=== PATIENT | female | born 1980 | race Caucasian/White ===

== ENCOUNTER 2021-10-27 06:26 | Observation (INO) | payer OTHER, SELFPAY ==
--- NOTE | ~2021-10-27 | XR_ITS ---
EXAMINATION: XR abdomen/kub 1V EXAM DATE: 10/27/2021 13:36 INDICATION: Possible distal colon obstruction TECHNIQUE: Frontal projection(s) of the abdomen for interpretation. Correlation is made to CT abdome n pelvis from earlier same date. FINDINGS: This image was obtained as a discount clerk for requested water-soluble enema examination. Patient was apprehensive about doing this procedure at this time, which does require a rectal tube and inflat ing a balloon to hold its position. There is some contrast in the rectum and renal calyces. Large amount of colonic stool, constipation. No transition point suspected on the CT scan obtained earlier same date. IMPRESSION: Severe constipation. Reviewed, dictated and finalized at location A. IMPRESSION: Severe constipation.
--- NOTE | ~2021-10-27 | CT_ITS ---
EXAMINATION: CT abdomen pelvis w con DATE: 10/27/2021 07:50 INDICATION: Constipation. Nausea. Generalized abdominal pain. TECHNIQUE: Computed tomography (CT) of the abdomen and pelvis was performed with 100 mL Omnipaque 350 intravenous contrast. Automated exposure control and iterative reconstruction technique were employe d. The dose-length product was 511.10 mGy-cm. COMPARISON: None. FINDINGS: The visualized portions of the lung bases demonstrate mild atelectasis on the left. No pleu ral effusion. The heart size is normal. No pericardial effusion. There is a small sliding hiatal johanne ia. There are cysts in the liver measuring up to 10 mm. The gallbladder, spleen, pancreas, and adrena l glands are normal. There are cysts in the kidneys measuring up to 8 mm on the right. There is a lar ge volume of stool in the colon with distention of the rectum. There is fat stranding around the rect um, consistent with inflammation. The appendix is not visualized. There are no pathologically enlarge d lymph nodes. There is no free intraperitoneal fluid. There is mild lumbar spondylosis. IMPRESSION: 1. Large volume of stool in the colon with distention of the rectum and fat stranding around the rect um, consistent with inflammation. Reviewed, dictated and finalized at location A. IMPRESSION: 1. Large volume of stool in the colon with distention of the rectum and fat str anding around the rectum, consistent with inflammation.
[2021-10-27 06:32] VITALS: BP 137/69; PULSE 97; RESP 16; TEMP 36.1; O2SAT 99
[2021-10-27 07:09] LABS: Basophils Percent Auto 0.4 % (0.2-1.2); Eosinophils Absolute Auto 0.3 K/mm3 (0-0.3); Eosinophils Percent Auto 4.5 % (0-4.4); Hematocrit 30.3 % (37.0-47.0); Hemoglobin 8.9 g/dL (12.0-15.0); Immature Granulocyte Absolute 0.03 K/mm3 (0.00-0.031); Immature Granulocyte Percent A 0.4 % (0-0.5); Lymphocytes Absolute Auto 1.81 K/mm3 (0.9-3.2); Lymphocytes Percent Auto 27.1 % (18.3-44.2); Mean Corpuscular HGB Conc 29.4 g/dl (32-36); Mean Corpuscular Hemoglobin 23.3 pg (26-34); Mean Corpuscular Volume 79.3 fl (80-100); Mean Platelet Volume 9.3 fl (7.4-10.4); Monocytes Absolute Auto 0.5 K/mm3 (0.1-0.6); Monocytes Percent Auto 6.9 % (2.6-8.5); Neutrophils Absolute Auto 4.1 K/mm3 (1.3-6.7); Neutrophils Percent Auto 60.7 % (45.5-73.1); Platelet Count Result 331 k/mm3 (150-375); Red Blood Count 3.82 M/mm3 (4.2-5.4); Red Cell Distribution Width 16.8 % (11.5-14.5); White Blood Count 6.7 K/mm3 (4.5-10.0)
--- NOTE | 2021-10-27 07:15 | ED.ABDPAIN ---
HPI - Abdominal Pain General Chief Complaint: Abdominal Pain Stated Complaint: CONSTIPATION Time Seen by Provider: 10/27/21 06:48 Source: patient History of Present Illness HPI narrative: Patient presents with concern for constipation. Patient reports she normally only has a bowel movement once a week however last bowel movement was approximately 3 weeks ago. She attempted stool softeners and enemas without relief of her symptoms. She describes a pressure sensation around her rectum. She was not sure what to do so she came to the ER for evaluation. She does report intermittent nausea denies any vomiting. Related Data Allergies Allergy/AdvReac Type Severity Reaction Status Date / Time No Known Allergies Allergy Verified 10/27/21 07:26 Review of Systems Review of Systems: CONSTITUTIONAL: Denies fever, chills, or sweats. EYES: Denies visual changes, redness, or discharge. ENT: Denies rhinorrhea, congestion, sore throat, or otalgia. CARDIOVASCULAR: Denies chest pain, palpitations, or edema. RESPIRATORY: Denies cough or dyspnea. GASTROINTESTINAL: Denies vomiting, or diarrhea. GENITOURINARY: Denies dysuria or hematuria. SKIN: Denies rash or itching. MUSCULOSKELETAL: Denies back pain, joint pain, or myalgia. NEUROLOGIC: Denies headache, numbness, dizziness, or weakness. PSYCHIATRIC: Denies anxiety or depression. All systems reviewed & are unremarkable except as noted in HPI and below PMFSH Past Medical History Medical History (Updated 10/27/21 @ 09:36 by Nikolai Rosales MD) Patient denies medical problems Social History Social History (Updated 10/27/21 @ 07:17 by Nikolai Rosales MD) Smoking packs per day: 1 Smoking cigarettes per day: 20.0 Smoking status: Current every day smoker Alcohol intake: never Substance use: former Other substance usage details: gummy thc Spiritual care concerns: No Exam Narrative: GENERAL: Well-appearing, well-nourished, and in no acute distress. HEAD: Normocephalic, atraumatic. EYES: PERRLA and EOMI. ENT: Nares clear, no rhinorrhea or epistaxis. Mucous membranes moist. NECK: Supple. No masses. No JVD ABDOMEN: Soft, nontender, nondistended EXTREMITIES: Normal range of motion. No edema. SKIN: Warm, dry, no rash. NEURO: No focal deficits. Alert and oriented x3. PSYCH: Normal mood and affect. Procedures Rectal Disimpaction Rectal Disimpaction #1: Rectal Disimpaction Date: 10/27/21 Rectal Disimpaction Time: 09:15 Time out performed rectal disimpaction: No Indication: fecal impaction Procedural Sedation: No Sedation/Analgesia: none Technique: manual disimpaction with gloved finger Result: unable to disimpact Patient Tolerated Procedure: other (2 attempts made aptient was unable to tolerate additional attempts) Complications: pain Course Reevaluation(s) Reevaluation #1: Patient continues to have constipation. Attempted glycerol suppository in rectal disimpaction which was unsuccessful. Patient was not tolerating the procedure after multiple times. Case discussed with GI and based on the CT scan there may be distal obstruction given the inflammation GI rectum admission for aggressive bowel regiment. Case cussed with hospitalist team who further management Date: 10/27/21 Time: 09:33 Vital Signs Vital signs: Vital Signs Temperature 36.1 C L 10/27/21 06:32 Pulse Rate 97 10/27/21 06:32 Respiratory Rate 16 10/27/21 06:32 Blood Pressure 137/69 10/27/21 06:32 Pulse Oximetry 99 10/27/21 06:32 Temperature 36.1 C L 10/27/21 06:32 Pulse Rate 92 10/27/21 09:28 Respiratory Rate 16 10/27/21 09:28 Blood Pressure 136/84 10/27/21 09:28 Pulse Oximetry 99 10/27/21 09:28 MDM - Abdominal Pain MDM Narrative Medical decision making narrative: Patient presented with rectal pressure no bowel movement in 3 weeks. She attempted stool softeners at home enemas at home. Attempted suppositori
[2021-10-27 07:18] LABS: Add Urine Microscopic? YES; Appearance Urine Cloudy (Clear); Bilirubin Urine Negative (Negative); Blood Urine Negative (Negative); Color Urine Yellow (Yellow); Glucose Urine UA Negative (Negative); Ketones Urine Negative (Negative); Leukocyte Esterase Ur 3+ LEU/UL (Negative); Mucus Urine Heavy /lpf; Nitrate Urine Negative (Negative); Protein Urine Negative (Negative); Specific Grav Ur 1.019 (1.001-1.035); Squamous Epithelial Cell Urine Many /hpf (Few); Urobilinogen Urine Negative mg/dL (<2.0); WBC Urine 31-50 /hpf
[2021-10-27 07:19] LABS: Alanine Aminotransferase 10 U/L (4-35); Albumin Level 4.2 g/dL (3.5-5.1); Alkaline Phosphatase 56 U/L (38-126); Anion Gap 4 mmol/L (8-16); Aspartate Amino Transferase 26 U/L (14-36); Bilirubin,Total 0.2 mg/dL (0.2-1.3); Blood Urea Nitrogen 13 mg/dL (7-17); Calcium 8.4 mg/dL (8.4-10.2); Carbon Dioxide 31 mmol/L (22-30); Chloride 103 mmol/L (98-107); Estimated CRCL calculation 103 ml/min; Estimated Glomerular Filt Rate > 60; Glucose 103 mg/dL (65-110); Lipase 27 U/L (23-300); Potassium 3.4 mmol/L (3.4-5.0); Sodium 138 mmol/L (137-145)
[2021-10-27 07:22] LABS: Hypochromasia 1+ (NORMAL); Platelet Estimate Adequate (Adequate)
[2021-10-27] MEDS: GLYCERIN ADULT 1 SUPP.RECT RECTAL (07:27)
[2021-10-27 09:28] VITALS: BP 136/84; PULSE 92; RESP 16; O2SAT 99
[2021-10-27] MEDS: PHENYLEPH/MINERAL OIL/PETROLAT OINTMENT 57 GM 1 APPLIC RECTAL (09:58)
[2021-10-27] MEDS: PEG (High)/E-LYTE SOLN 4,000 ML BTL 4000 ML PO (09:59)
[2021-10-27] MEDS: SODIUM CHLORIDE 0.9% IV 1,000 ML 125 ML IV CONT (11:23)
--- NOTE | 2021-10-27 11:27 | ADMGEN ---
This patient, Tyler Zavala, was admitted to [facility] Surg Room 310-01. Patient/family oriented to hospital policies and general routines including ID bracelet, bed and alarms, visiting hours, pain management, procedures, bathroom and other care routines, personal items, smoking policy, room service/diet, and visiting hours. Information on how to activate the Rapid Response Team has been discussed. Patient/Family are encouraged to report perceived risks to care and to ask questions if they do not understand what they are told or what they should do.
[2021-10-27 11:34] VITALS: BMI 29.0
[2021-10-27 11:52] VITALS: BP 117/72; PULSE 75; RESP 18; TEMP 37.3; O2SAT 100
--- NOTE | 2021-10-27 13:39 | PM.IMHP ---
H&P: HPI History of Present Illness Date/Time: Patient was placed observation status for expected length of stay less than 23 hours for management, will plan to re-evaluate tomorrow for improvement. 10/27/21 13:39 Chief Complaint: Constipation Narrative: Ms. Zavala is a 41-year-old female who presented emergency room with complaints of constipation. Patient states she typically has bowel movements weekly, but she has not had a bowel movement in 3 weeks. Patient states that she is not having abdominal pain, but she is having a large amount of abdominal pressure. Patient states this has been a chronic issue for her for years. Patient denies any nausea, vomiting, diarrhea, fever, or chills. Patient denies any dysuria, hematuria, frequency, or urgency, but states that she has felt like she may have a urinary tract infection recently. Patient states that every time she does try to have a bowel movement weekly she does have a large amount of pain in the rectal area. Patient states she at times does have quite a bit of cramping also when having a bowel movement. Patient denies any lightheadedness, dizziness, syncopal, or near syncopal episodes. Patient denies any chest pain, shortness breath, orthopnea, or PND. Patient states she has been told she is anemic in the past. Patient states that she has very heavy periods. Patient states that she menstruates monthly and her periods to be last 48 days. Patient states that she goes to multiple tampons and pads in a day. Review of Systems Review of Systems: A 12 point review of systems was completed patient all pertinent positive and negative per HPI the remainder are unremarkable. [facility] Past Medical History Medical History (Updated 10/27/21 @ 13:44 by Gladys Layton APRN) Anemia Surgical History Surgical History (Updated 10/27/21 @ 13:44 by Gladys Layton APRN) History of tubal ligation Previous section Social History Social History (Updated 10/27/21 @ 07:17 by Nikolai Rosales MD) Smoking packs per day: 1 Smoking cigarettes per day: 20.0 Smoking status: Current every day smoker Alcohol intake: never Substance use: former Other substance usage details: gummy thc Spiritual care concerns: No Meds Home Medications and Allergies Home Medications Medication Instructions Recorded Confirmed Type No Home Medications 10/27/21 10/27/21 History Allergies Allergy/AdvReac Type Severity Reaction Status Date / Time No Known Allergies Allergy Verified 10/27/21 07:26 Vital Signs Vital Signs - 24 hr 10/27/21 06:32 10/27/21 09:28 10/27/21 11:52 Temperature 36.1 C L 37.3 C Pulse Rate 97 92 75 Respiratory Rate 16 16 18 Blood Pressure 137/69 136/84 117/72 Pulse Oximetry 99 99 100 Exam Narrative: Constitutional: Patient is well-nourished in no acute distress. Patient is alert and oriented x3 HEENT: Moist mucous membranes. No scleral icterus. No lymphadenopathy. Neck: No carotid bruits noted no JVD noted Lungs: Lung sounds are clear to auscultation bilaterally. No accessory muscle use. No rhonchi, rales, or wheezes noted. Cardiovascular: Apical pulse is regular rate and rhythm. S1-S2 noted, no S3 or S4 noted. No gallops, murmurs, or rubs noted. Abdomen: Soft, round, and nontender, patient states she does feel pressure with palpation but no pain.. No palpable masses. Extremities: No edema. Nontender. Skin: No rashes or lesions. Warm and dry. Skin is intact. Neurological: No focal neurological deficits. Cranial nerves II-XII grossly intact. Psychiatric: Cooperative, appropriate mood, and affect H&P: Results Labs Labs: Short CBC 10/27/21 Range/Units 06:59 WBC 6.7 (4.5-10.0) K/mm3 Hgb 8.9 L (12.0-15.0) g/dL Hct 30.3 L (37.0-47.0) % Plt Count 331 (150-375) k/mm3 [facility] 10/27/21 06:59 Sodium 138 Potassium 3.4 Chloride 103 Carbon Dioxide 31 H BUN 13 Creatinine 0.60 L Glucose 103
[2021-10-27 14:00] VITALS: BP 108/71; PULSE 75; RESP 18; TEMP 37.3; O2SAT 98
[2021-10-27 15:08] LABS: Iron 39 ug/dL (37-170)
[2021-10-27 15:18] LABS: Percent Iron Saturation 8 % (20-50)
--- NOTE | 2021-10-27 15:22 | WPDGICN ---
Assessment and Plan Assessment and plan (1) Constipation: Code(s): K59.00 - Constipation, unspecified Status: Acute Assessment and Plan: as noted above, this is a chronic problem for her. I will order citrated magnesium now to try to soften her stool and facilitate a bowel movement. I had explained to her that a water-soluble enema would help not only see her anatomy but also we have cathartic effects. She would rather not have that at this time. depending on whether not she has results from the magnesium citrate that I have ordered we might try to prep her for colonoscopy. She states that she might reconsider the high peak enema in the morning (2) Fecal impaction: Code(s): K56.41 - Fecal impaction Status: Acute Assessment and Plan: Stool could not be felt by the emergency room physician except on the tip of his finger, therefore this appears to be a high fecal impaction. By her description this happens frequently. She states that time she will manipulate herself, putting her fingers in her vagina, to help with stool pass (3) Anemia: Code(s): D64.9 - Anemia, unspecified Status: Acute Assessment and Plan: as far she knows this is a new problem. She denies seeing blood in her stools GI Consult Note Consult date/time: 10/27/21 15:22 HPI: Tyler Zavala is a 41 year old female with severer constipation. Patient reports she normally only has a bowel movement once a week however last bowel movement was approximately 3 weeks ago. She attempted stool softeners and enemas without relief of her symptoms. She describes a pressure sensation around her rectum. She was not sure what to do so she came to the ER for evaluation. She does report intermittent nausea denies any vomiting. she states that the last few days she has had a great pressure and she tried to pass some stool. It seemed to come down to the anus but would not pass. In the emergency room a physician performed a rectal examination and did not feel rectal impaction but could feel just barely the tip of some stool. I have been consulted in ordered a high peak enema but the patient the is refusing at this time. She states that she is concerned about the balloon being inflated in her rectum and more stuff being shot up into her colon. She states that she has had problems with her bowels all of her life. When she was younger she would use stool softeners. More recently she might go a week between bowel movements but does not get much of an urge. States that she eats a fair bit of fiber. She will have oatmeal for breakfast and eats a lot of fruit. I did Personally review her CT scan. That showed large amount of stool in the distended colon also the rectum appears to be distended and there is stranding around the rectum implying inflammation.. Review of Systems Review of Systems: All systems reviewed & are unremarkable except as noted in HPI and below PMFSH Past Medical History Medical History Anemia Surgical History Surgical History History of tubal ligation Previous section Social History Social History Smoking packs per day: 1 Smoking cigarettes per day: 20.0 Smoking status: Current every day smoker Alcohol intake: never Substance use: former Other substance usage details: gummy thc Spiritual care concerns: No Meds Home Medications and Allergies Home Medications Medication Instructions Recorded Confirmed Type No Home Medications 10/27/21 10/27/21 History Allergies Allergy/AdvReac Type Severity Reaction Status Date / Time No Known Allergies Allergy Verified 10/27/21 07:26 Vital Signs Vital Signs - 24 hr 10/27/21 06:32 10/27/21 09:28 10/27/21 11:52 Temperature 36.1 C L 37.3 C Pulse Rate 97
[2021-10-27] MEDS: MAGNESIUM CITRATE 300 ML BTL PO (15:57)
[2021-10-27] MEDS: DOCUSATE SODIUM 100 MG CAPSULE PO (20:20)
[2021-10-27 21:07] VITALS: BP 99/63; PULSE 73; RESP 16; TEMP 37.4; O2SAT 97
[2021-10-28] MEDS: SODIUM CHLORIDE 0.9% IV 1,000 ML 125 ML IV CONT ×2 (01:02→09:05)
[2021-10-28 05:52] LABS: Basophils Percent Auto 0.4 % (0.2-1.2); Eosinophils Absolute Auto 0.4 K/mm3 (0-0.3); Eosinophils Percent Auto 8.5 % (0-4.4); Hematocrit 27.4 % (37.0-47.0); Hemoglobin 8.2 g/dL (12.0-15.0); Immature Granulocyte Absolute 0.01 K/mm3 (0.00-0.031); Immature Granulocyte Percent A 0.2 % (0-0.5); Lymphocytes Absolute Auto 2.27 K/mm3 (0.9-3.2); Mean Corpuscular HGB Conc 29.9 g/dl (32-36); Mean Corpuscular Hemoglobin 23.2 pg (26-34); Mean Corpuscular Volume 77.4 fl (80-100); Mean Platelet Volume 9.1 fl (7.4-10.4); Monocytes Absolute Auto 0.3 K/mm3 (0.1-0.6); Neutrophils Absolute Auto 1.8 K/mm3 (1.3-6.7); Neutrophils Percent Auto 37.9 % (45.5-73.1); Platelet Count Result 302 k/mm3 (150-375); Red Blood Count 3.54 M/mm3 (4.2-5.4); Red Cell Distribution Width 16.9 % (11.5-14.5); White Blood Count 4.8 K/mm3 (4.5-10.0)
[2021-10-28 06:05] LABS: Alanine Aminotransferase 9 U/L (4-35); Albumin Level 3.8 g/dL (3.5-5.1); Alkaline Phosphatase 54 U/L (38-126); Anion Gap 4 mmol/L (8-16); Aspartate Amino Transferase 23 U/L (14-36); Bilirubin,Total 0.2 mg/dL (0.2-1.3); Blood Urea Nitrogen 9 mg/dL (7-17); Calcium 8.1 mg/dL (8.4-10.2); Carbon Dioxide 29 mmol/L (22-30); Chloride 106 mmol/L (98-107); Estimated CRCL calculation 121 ml/min; Estimated Glomerular Filt Rate > 60; Glucose 90 mg/dL (65-110); Potassium 3.9 mmol/L (3.4-5.0); Sodium 139 mmol/L (137-145)
[2021-10-28 06:43] VITALS: BP 99/62; PULSE 72; RESP 16; TEMP 37.2; O2SAT 98
--- NOTE | 2021-10-28 06:53 | WPDGIPROGNO ---
Progress Note: A&P Assessment and Plan (1) Constipation: Code(s): K59.00 - Constipation, unspecified Status: Acute Assessment and Plan: as noted above, this is a chronic problem for her. I will order citrated magnesium now to try to soften her stool and facilitate a bowel movement. I had explained to her that a water-soluble enema would help not only see her anatomy but also we have cathartic effects. She would rather not have that at this time. depending on whether not she has results from the magnesium citrate that I have ordered we might try to prep her for colonoscopy. She states that she might reconsider the high peak enema in the morning 10/28 she did have a good bowel movement after taking the laxative, beginning with the large codi-colored ball of stool. She feels comfortable today and feels like going home. I would recommend she take a product like Linzess to stay regular and her prevent constipation and fecal impaction. (2) Fecal impaction: Code(s): K56.41 - Fecal impaction Status: Acute Assessment and Plan: Stool could not be felt by the emergency room physician except on the tip of his finger, therefore this appears to be a high fecal impaction. By her description this happens frequently. She states that time she will manipulate herself, putting her fingers in her vagina, to help with stool pass (3) Anemia: Code(s): D64.9 - Anemia, unspecified Status: Acute Assessment and Plan: as far she knows this is a new problem. She denies seeing blood in her stools 10/28 I discussed her anemia with her. I told her that we of course RO is concerned about possible colorectal malignancy or other gastrointestinal pathology when 1 has significant anemia. She states that she has heavy periods and has been anemic for a long time. I think that she would benefit from iron supplementation. I also told her that she should have a colonoscopy in the near future. She states that she is going to be seeing her primary care physician in [place] next week. Subjective Date/time seen: 10/28/21 06:53 10/27 Patient reports she normally only has a bowel movement once a week however last bowel movement was approximately 3 weeks ago. She attempted stool softeners and enemas without relief of her symptoms. She describes a pressure sensation around her rectum. She was not sure what to do so she came to the ER for evaluation. She does report intermittent nausea denies any vomiting. she states that the last few days she has had a great pressure and she tried to pass some stool. It seemed to come down to the anus but would not pass. In the emergency room a physician performed a rectal examination and did not feel rectal impaction but could feel just barely the tip of some stool. I have been consulted and ordered a water-soluble enema enema but the patient is refusing at this time. She states that she is concerned about the balloon being inflated in her rectum and more stuff being shot up into her colon. She states that she has had problems with her bowels all of her life. When she was younger she would use stool softeners. More recently she might go a week between bowel movements but does not get much of an urge. States that she eats a fair bit of fiber. She will have oatmeal for breakfast and eats a lot of fruit. I did Personally review her CT scan. That showed large amount of stool in the distended colon also the rectum appears to be distended and there is stranding around the rectum implying inflammation.. 10/28 She states that she had a great bowel movement after taking a citrated magnesia Review of Systems Review of Systems: All systems reviewed & are unremarkable except as noted in HPI and below Exam Const: General: alert Orientation/consciousness: patient oriented x3 Resp: Auscultation: clear to auscultation bilaterally Cardio: Rhythm: regular rhythm GI: Inspection: normal to
[2021-10-28 09:05] VITALS: O2SAT 98
[2021-10-28] MEDS: polyethylene glycoL 3350 17 GM POWD.PACK PO (09:05)
[2021-10-28] MEDS: DOCUSATE SODIUM 100 MG CAPSULE PO (09:05)
[2021-10-28 09:29] LABS: Ferritin 4.97 ng/mL (6.24-137)
[2021-10-28 10:03] LABS: Folic Acid 13.6 ng/mL (2.76->20)
--- NOTE | 2021-10-28 10:15 | PM.DS ---
DS: Admitting Diagnosis Discharge Date 10/28/21 1015 Admitting Diagnosis Constipation with impaction DS: Discharge Diagnosis Discharge Diagnosis (1) Fecal impaction: Code(s): K56.41 - Fecal impaction Status: Acute Assessment and Plan: Gastroenterology has been consulted and due appreciating further recommendations. Patient's bowel issues appear to be chronic in nature. GoLYTELY has been ordered by Gastroenterology. (2) Anemia: Code(s): D64.9 - Anemia, unspecified Status: Acute Assessment and Plan: Patient states she does have heavy periods monthly. Patient's MCV is mildly low. Will have iron levels checked. 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 DS: Summary Hospital Course Hospital Course: patient is a 41-year-old female with a past medical history of anemia and tubal ligation who presented to the ED with complaints of constipation. patient stated that she normally has a bowel movement weekly however she has not had 1 in 3 weeks. she was having extreme abdominal pain and pressure. CT of the abdomen showed constipation large amounts of stool with fat stranding around the rectum and swelling. x-ray of the abdomen showed constipation as well. Patient was prescribed some Mag citrate and GI got involved and patient was able to have a few good bowel movements and feels a lot better to today. Patient has been able to eat and hold down food. She denies any chest pain, shortness of breath, nausea, vomiting, diarrhea, constipation, weakness, fatigue, fevers, sweats, chills. I did speak with the patient about her iron deficiency and explained her that she will need to start iron supplements however she will need to also need to take Colace with that. Or will cause her to be severely constipated again. Status at Discharge Functional status at discharge: independent ambulation Overall status at discharge: patient is progressing back to baseline Time Spent with Patient Time attestation: Total time spent providing and/or coordinating discharge services: 48 minutes Time spent: Greater than 30 minutes Specific discharge activities: Diagnostic testing, chart review, developing a treatment plan, education, care coordination documentation, physical exam, result review Exam Const: General: cooperative, healthy appearing, no acute distress, well developed, alert and awake Nutritional Appearance: well nourished Orientation/consciousness: patient oriented x3 Limitations: no limitations HENMT: Head: normal to inspection Ears: hearing grossly normal bilaterally General nose exam: Normal external nose present Mouth: Yes Normal oral and palatal mucosa present, Yes lip normal and Yes tongue normal Teeth and gingiva: abnormal tooth and associated gingiva and poor dentition Eyes: General: appearance normal, both eyes and all related structures Neck: Neck: normal visual inspection, full ROM, trachea midline and supple Chest: Chest palpation & inspection: normal inspection of the chest Resp: Effort & Inspection: normal respiratory effort and able to speak in complete sentences Auscultation: clear to auscultation bilaterally Cardio: Jugular venous distension: no JVD Rate: regular rate Rhythm: regular rhythm Heart sounds: S1 normal heart sound present and S2 normal heart sound present Peripheral pulses: Peripheral pulses 2+ throughout GI: Inspection: normal to inspection GI Palp: Yes Soft to palpation and No Tenderness to palpation present (GI) Auscultation: normal bowel sounds Skin: General skin exam: normal color and no rashes or lesions noted Lesions: no lesions Rashes: no rashes Trauma: no lacerations or abrasions Wounds: no wounds Hair: normal Nails: normal Neuro: General: patient oriented x3, moves all extremities and Normal light touch and pain sensation Speech: normal speech Gait exam (Neuro): Normal gait present Extrem: General: normal to inspection Right upp
== END 2021-10-28 12:55 | disposition home or self-care (01) ==
LOC: ANHED 09:36 → ANH3MEDSUR 15:18
PROVIDERS: Nurse Practitioner Adult Health; Admitting Provider Internal Medicine; Emergency Provider Emergency Medicine; PCP Internal Medicine; Visit Provider Nurse Practitioner
DX: K56.41 Fecal impaction (principal); D64.9 Anemia, unspecified; R10.9 Unspecified abdominal pain; F17.210 Nicotine dependence, cigarettes, uncomplicated; F12.90 Cannabis use, unspecified, uncomplicated
CPT/HCPCS: 36415; 74018; 74177; 80053; 81001; 81025; 82607; 82728; 82746; 83540; 83550; 83690; 85025; 87086; 87088; 96361; 96365; 96374; 99285; A9270; G0378; G0379; J0696; J7030; Q9967

== ENCOUNTER 2023-11-12 17:51 | Emergency (ER) | payer OTHER, SELFPAY | END 2023-11-12 18:00 | disposition left against medical advice (07) | DX: Z53.21 Procedure and treatment not carried out due to patient leaving prior to being seen by health care provider (principal) | CPT/HCPCS: 99199 ==

== ENCOUNTER 2024-05-14 00:09 | Emergency (ER) | payer OTHER, SELFPAY ==
[2024-05-14] VITALS (13 sets, daily range): BP systolic 80–100; BP diastolic 52–68; PULSE 76–111; RESP 12–18; TEMP 36.9–37.6; O2SAT 93–98
--- NOTE | ~2024-05-14 | XR_ITS ---
EXAMINATION: XR chest 1V portable DATE: 05/14/2024 00:42 INDICATION: Epigastric abdominal pain. TECHNIQUE: A single frontal view of the chest was obtained. COMPARISON: CT abdomen and pelvis 10/27/2021 FINDINGS: There is no pneumonia, pleural effusion, or pneumothorax. The heart size is normal. IMPRESSION: 1. No acute cardiopulmonary disease. Reviewed, dictated and finalized at location A.
--- NOTE | 2024-05-14 00:10 | ECG_ITS ---
Test Date: 2024-05-14 00:22:35 Measurements Intervals [place] Rate: 107 P: 15 MN: 172 QRS: 24 QRSD: 87 T: 20 QT: 307 QTc: 410 Interpretive Statements SINUS TACHYCARDIA OTHERWISE NORMAL ECG No previous ECG available for comparison Electronically Signed On 05-14-2024 10:20:59 CDT by Kingsley Yan M.D.
[2024-05-14 00:35] LABS: Basophils Percent Auto 0.2 % (0.2-1.2); Eosinophils Percent Auto 0.1 % (0-4.4); Hematocrit 25.7 % (37.0-47.0); Hemoglobin 7.6 g/dL (12.0-15.0); Immature Granulocyte Absolute 0.06 K/mm3 (0.00-0.031); Immature Granulocyte Percent A 0.5 % (0-0.5); Lymphocytes Absolute Auto 0.44 K/mm3 (0.9-3.2); Mean Corpuscular HGB Conc 29.6 g/dl (32-36); Mean Corpuscular Hemoglobin 22.3 pg (26-34); Mean Corpuscular Volume 75.4 fl (80-100); Mean Platelet Volume 9.2 fl (7.4-10.4); Monocytes Absolute Auto 0.6 K/mm3 (0.1-0.6); Monocytes Percent Auto 5.2 % (2.6-8.5); Platelet Count Result 257 k/mm3 (150-375); Red Blood Count 3.41 M/mm3 (4.2-5.4); Red Cell Distribution Width 16.8 % (11.5-14.5); White Blood Count 11.1 K/mm3 (4.5-10.0)
[2024-05-14] MEDS: ASPIRIN 81 MG CHEWABLE TABLET 324 MG PO (00:42)
[2024-05-14] MEDS: SODIUM CHLORIDE 0.9% IV 1,000 ML 999 ML IV CONT ×3 (00:42→02:55)
[2024-05-14 00:43] LABS: Alanine Aminotransferase 23 U/L (6-35); Albumin Level 3.8 g/dL (3.5-5.1); Alkaline Phosphatase 93 U/L (38-126); Anion Gap 8 mmol/L (4-12); Aspartate Amino Transferase 33 U/L (14-36); Bilirubin,Total 0.5 mg/dL (0.2-1.3); Blood Urea Nitrogen 15 mg/dL (7-17); Calcium 8.6 mg/dL (8.4-10.2); Carbon Dioxide 28 mmol/L (22-30); Chloride 98 mmol/L (98-107); Estimated CRCL calculation 67 ml/min; Estimated Glomerular Filt Rate 60; Glucose 133 mg/dL (65-110); INR 1.1; Lipase 18 U/L (23-300); Potassium 3.4 mmol/L (3.4-5.0); Prothrombin Time 15.1 Seconds (11.1-14.7); Sodium 134 mmol/L (137-145)
[2024-05-14 00:44] LABS: Partial Thromboplastin Time 38.5 Seconds (22.3-36.8)
[2024-05-14 00:55] LABS: Anisocytosis 1+; Hypochromasia 1+; Ovalocytes 1+; Platelet Estimate Adequate (Adequate); Schistocytes None Seen; Troponin I < 0.012 ng/mL (0.000-0.034)
--- NOTE | 2024-05-14 01:26 | ED.CHESTPAIN ---
HPI - Chest Pain General Chief Complaint: Chest Pain Stated Complaint: chest pain Time Seen by Provider: 05/14/24 00:24 History of Present Illness HPI narrative: Patient is a 43-year-old female who presents to the emergency department this evening complaining of flu-like symptoms. Patient states that starting yesterday she was developing some fevers at home, chills, headaches and chest pain. Patient also states that she noticed that she has been having some dysuria as well. Patient has an old blister in her left 3rd toe which opened up and drained a while ago but has not completely healed. Patient had a virtual appointment and they told her that they were concerned that her blister is a diabetic ulcer even though the patient has no history of diabetes. Patient then decided to come to the emergency department for further evaluation. No a additional symptoms or concerns at this time. Related Data Allergies Allergy/AdvReac Type Severity Reaction Status Date / Time No Known Allergies Allergy Verified 05/14/24 01:17 Review of Systems Review of Systems: All systems are reviewed and are negative unless stated otherwise in the HPI. PMF Past Medical History Medical History Anemia Surgical History Surgical History History of tubal ligation Previous section Social History Social History Smoking packs per day: 1 Smoking cigarettes per day: 20.0 Smoking status: Current every day smoker Alcohol intake: never Substance use: former Other substance usage details: gummy thc Spiritual care concerns: No Exam Narrative: General: Alert, awake, afebrile, in no acute distress. HEENT: PERRL, no rhinorrhea, no post nasal drip, oropharynx clear. Cardiovascular: Regular rate and rhythm, no murmurs, rubs or gallops, no peripheral edema. Respiratory: Clear to auscultation bilaterally, no tachypnea, no wheezing, no rhonchi, no rubs, no respiratory distress. Abdomen: Soft, nontender, nondistended, no rebound, no guarding, no peritoneal signs. Musculoskeletal: No joint swelling or deformity, normal muscle tone. Skin: No rashes or petechia, no signs of infection. Neurological: Alert and oriented to person, place, and time. Follows all commands. No focal deficits, speech is clear and fluent. Course Vital Signs Vital signs: Vital Signs Temperature 99.6 F 05/14/24 00:44 Pulse Rate 100 05/14/24 00:44 Respiratory Rate 18 05/14/24 00:44 Blood Pressure 82/59 L 05/14/24 00:44 Pulse Oximetry 96 05/14/24 00:44 Temperature 98.5 F 05/14/24 02:01 Pulse Rate 78 05/14/24 03:33 Respiratory Rate 16 05/14/24 03:33 Blood Pressure 100/68 05/14/24 03:33 Pulse Oximetry 98 05/14/24 03:33 Oxygen Delivery Room Air 05/14/24 01:14 MDM - Chest Pain MDM Narrative Medical decision making narrative: The patient was evaluated by myself in the emergency department. History is obtained from patient who is an independent historian and physical exam was performed. External medical records were reviewed at this time. IV was established and pertinent tests were ordered. Patient was administered 2 L IV fluid bolus with normal saline. EKG was obtained which revealed sinus tachycardia rate of 107 beats per minute, no evidence of acute ischemia. EKG was independently interpreted by me and is currently pending official cardiology read. Laboratory results obtained revealing a hemoglobin of 7.6 with an MCV of 75 otherwise no acute process. Patient's last documented hemoglobin was from October of 2021 which was noted to be 8.2. Patient did confirm a history of iron deficiency anemia and admits that she does not take her iron because the iron pills make her sick. I did inform the patient that a lot of her symptoms including her generalized fatigue and weakness is likely due to her anemia and if she is not willing to take the oral iron pills that she needs to follow up with the master merchandiser for additional options including IV iron transfusion and patient is agreeable with this plan. Urinalysis revealed urinary tract infection with positive nitrites, greater than 100 white blood cells and 4+ bacteria. Patient was administered her 1st dose of antibiotic 1 g of IV Rocephin in the emergency department and informed that she will be sent home on an oral antibiotic for the next 7 days. Patient was administered a 3rd L IV fluid bolus with normal saline due to systolic blood pressure averaging in the 90s. Imaging studies obtained included CXR which was independently interpreted by me revealing no acute cardiopulmonary process, which is pending final radiology interpretation. Differential diagnosis considerations include dehydration, electrolyte derangements, infectious process such as pneumonia/UTI, acute viral syndrome. Comorbidities impacting this visit include none. I have evaluated and discussed social determinants of health with the patient that could potentially impact subsequent diagnosis and treatment plans. On repeat assessment of the patient, reevaluation revealed that the patient is doing well and is in no acute distress. Patient symptoms have improved since she arrived to our emergency department. Repeat vital signs were all reviewed and noted to be stable with repeat blood pressure of 100 over 68 mmHg. Differential diagnosis and treatment plan were discussed with the patient at bedside. Patient agrees with discussion and after shared medical decision making agrees with discharge. All questions were answered to the patient's satisfaction. Patient will follow up with Hematology with Dr. Cardoza in 3-5 days. A script for cephalexin was sent to patient's pharmacy and she was instructed to take as prescribed for her UTI. Patient was provided with strict return precautions and instructed to return to the emergency department if any new or worsening symptoms develop. The patient was discharged in stable condition. Lab Data 05/14/24 00:26 05/14/24 00:26 Labs: Lab Results 05/14/24 05/14/24 Range/Units 00:26 01:21 WBC 11.1 H (4.5-10.0) K/mm3 RBC 3.41 L (4.2-5.4) M/mm3 Hgb 7.6 L (12.0-15.0) g/dL Hct 25.7 L (37.0-47.0) % MCV 75.4 L (80-100) fl MCH 22.3 L (26-34) pg MCHC 29.6 L (32-36) g/dl RDW 16.8 H (11.5-14.5) % Plt Count 257 (150-375) k/mm3 MPV 9.2 (7.4-10.4) fl Immature Gran % (Auto) 0.5 (0-0.5) % Neut % (Auto) 90.0 H (45.5-73.1) % Lymph % (Auto) 4.0 L (18.3-44.2) % [place] % (Auto) 5.2 (2.6-8.5) % Eos % (Auto) 0.1 (0-4.4) % Baso % (Auto) 0.2 (0.2-1.2) % Lymph # (Auto) 0.44 L (0.9-3.2) K/mm3 [place] # (Auto) 0.6 (0.1-0.6) K/mm3 Eos # (Auto) 0.0 (0-0.3) K/mm3 Baso # (Auto) 0.0 (0.0-0.1) K/mm3 Abs Immat Gran (auto) 0.06 H (0.00-0.031) K/mm3 Absolute Neuts (auto) 10.0 H (1.3-6.7) K/mm3 Absolute Nucleated RBC 0.000 (0.0-0.012) K/mm3 Nucleated RBC % 0.0 (0.0-0.2) % Platelet Estimate Adequate (Adequate) Hypochromasia 1+ Anisocytosis 1+ Ovalocytes 1+ Schistocytes None seen PT 15.1 H (11.1-14.7) Seconds INR 1.1 APTT 38.5 H (22.3-36.8) Seconds Sodium 134 L (137-145) mmol/L Potassium 3.4 (3.4-5.0) mmol/L Chloride 98 (98-107) mmol/L Carbon Dioxide 28 (22-30) mmol/L Anion Gap 8 (4-12) mmol/L BUN 15 D (7-17) mg/dL Creatinine 1.00 (0.7-1.0) mg/dL Estim Creat Clear Calc 67 ml/min Estimated GFR 60 (59 - ) Glucose 133 H (65-110) mg/dL Calcium 8.6 (8.4-10.2) mg/dL Total Bilirubin 0.5 (0.2-1.3) mg/dL AST 33 (14-36) U/L ALT 23 (6-35) U/L Alkaline Phosphatase 93 (38-126) U/L Troponin I < 0.012 (0.000-0.034) ng/mL Total Protein 8.0 (6.3-8.2) g/dL Albumin 3.8 (3.5-5.1) g/dL Lipase 18 L (23-300) U/L Urine Color Yellow (Yellow) Urine Appearance Turbid H (Clear) Urine pH 5.5 (5.0-9.0) Ur Specific [place] 1.014 (1.001-1.035) Urine Protein 2+ H (Negative) mg/dL Urine Glucose (UA) Negative (Negative) mg/dL Urine Ketones Negative (Negative) mg/dL Ur Blood (Man) 1+ H (Negative) Urine Nitrate Positive H (Negative) Urine Bilirubin Negative (Negative) Urine Urobilinogen 1.0 (<2.0) mg/dL Add Ur Microanalysis Reviewed Leukocyte Esterase Rfl 3+ H (Negative) MANUEL/UL Urine RBC 3-5 H (0-2) /hpf Urine WBC >100 H (0-3) /hpf Ur Squamous Epith Cells Many H (Few) /hpf Urine Bacteria 4+ H /hpf Urine Casts 3-5 Influenza A (RT-PCR) Negative (Negative) Influenza B (RT-PCR) Negative (Negative) SARS-CoV-2 RNA (RT-PCR) Negative (Negative) Discharge Plan Discharge Clinical Impression: UTI (urinary tract infection), Iron deficiency anemia Patient Disposition: Home, Self-Care Condition: Improved Instructions: Antibiotic Form, Urinary Tract Infection in Women (DC), Iron Rich Diet (ED), Anemia (ED) Additional Instructions: Please follow-up with the master merchandiser you were provided with today regarding your iron deficiency anemia. Take the prescribed antibiotic as instructed for UTI. Return to the ED if any new or worsening symptoms develop. Prescriptions: New cephalexin 500 mg capsule 500 mg PO Q12H 7 Days Qty: 14 0RF No Action polyethylene glycol 3350 [Miralax] 17 gram Powder In Packet 17 g PO QAM Qty: 30 0RF ferrous sulfate 325 mg (65 mg iron) Tablet 324 mg PO BIDWM Qty: 60 0RF docusate sodium 100 mg Capsule 100 mg PO Q12HR Qty: 60 0RF amoxicillin-pot clavulanate 875-125 mg tablet 1 tablet PO Q12H Qty: 10 0RF Follow-up/Referrals: Sina Cardoza MD [Physician] - 3 Days PHYSICIAN NOT ON STAFF,NONSTAFF [Primary Care Provider] - Time of Disposition: 03:59
[2024-05-14 02:01] LABS: Add Urine Microscopic? YES; Appearance Urine Turbid (Clear); Bacteria Urine 4+ /hpf; Bilirubin Urine Negative (Negative); Blood Urine 1+ (Negative); Color Urine Yellow (Yellow); Glucose Urine UA Negative (Negative); Ketones Urine Negative (Negative); Leukocyte Esterase Ur 3+ LEU/UL (Negative); Need Manual Microscopic Reviewed; Nitrate Urine Positive (Negative); Protein Urine 2+ mg/dL (Negative); Specific Grav Ur 1.014 (1.001-1.035); Squamous Epithelial Cell Urine Many /hpf (Few); WBC Urine >100 /hpf (0-3); pH Urine 5.5 (5.0-9.0)
[2024-05-14 02:07] LABS: Influenza A QL RT-PCR Negative (Negative); Influenza B QL RT-PCR Negative (Negative); SARS-CoV-2 RNA PCR Negative (Negative)
== END 2024-05-14 04:33 | disposition home or self-care (01) ==
PROVIDERS: Emergency Provider Emergency Medicine
DX: N39.0 Urinary tract infection, site not specified (principal); D50.9 Iron deficiency anemia, unspecified; R00.0 Tachycardia, unspecified
CPT/HCPCS: 36415; 71045; 80053; 81001; 83690; 84484; 85025; 85610; 85730; 87077; 87086; 87186; 87636; 93005; 96361; 96365; 99284; A9270; J0696; J7030